=== PATIENT | female | born 1970 | race Caucasian/White ===

== ENCOUNTER → 2018-10-10 | Outpatient (REF) | payer OTHER ==
[~2018-10-10] MED LIST: CRESTOR5 MG PO; FLONASE NASAL50 MCG; LISINOPRIL10 MG PO; LISINOPRIL5 MG PO; MECLIZINE12.5 M1 PO; PRAVASTATIN10 MG PO; ZOFRAN4 MG/TAB PO
[2018-10-10 09:26] LABS: HEMATOCRIT 43.9 % (37.0-47.0); IMMATURE GRANULOCYTES 0.1 % (0.0-5.0); MEAN CELL VOLUME 88.3 fL CALC (80.0-100.0); MEAN CORPUSCULAR HGB 28.2 pG CALC (26.0-32.0); MEAN CORPUSCULAR HGB CONC 31.9 g/L CALC (32.0-36.0); NEUT# 4.59 thou/uL (2.00-7.15); RED BLOOD COUNT 4.97 mill/uL (4.20-5.60); RED CELL DISTRI WIDTH 14.4 % (11.5-15.5)
[2018-10-10 09:44] LABS: ALBUMIN 4.2 g/dL (3.2-5.0); ALKALINE PHOSPHATASE 101 u/l (38-126); ANION GAP 15 (6-22 (CALC)); BILIRUBIN, TOTAL 0.5 mg/dL (0.0-1.4); BUN 15 mg/dL (7-17); BUN/CREATININE RATIO 21 (12-20 (CALC)); CALCULATED LDLCHOLESTEROL 120 mg/dL (62-129 (CALC)); CARBON DIOXIDE 25 mmol/l (22-30); CHLORIDE 104 mmol/l (95-108); CHOLESTEROL HDL RATIO 3.4 (<4.4 (CALC)); CPK 57 u/l (30-165); CREATININE 0.7 mg/dL (0.5-1.0); GFR > 60 ML/MIN (>=60 (CALC)); GFR FOR AFR.AMER. > 60 ML/MIN (>=60 (CALC)); HDL CHOLESTEROL 59 mg/dL (>=40); POTASSIUM 4.4 mmol/l (3.5-5.1); SGOT/AST 26 u/l (14-36); SODIUM 139 mmol/l (137-146); TOTAL CHOLESTEROL 202 mg/dl (0-199); TOTAL PROTEIN 7.1 g/dL (6.3-8.2); TOTAL TRIGLYCERIDES 114 mg/dl (30-149); VLDL CHOLESTROL 23 mg/dl (1-41 (CALC))
[2018-10-10 09:45] LABS: URINE BILIRUBIN - DIPSTICK NEGATIVE (NEGATIVE); URINE BLOOD DIPSTICK NEGATIVE (NEGATIVE); URINE COLOR YELLOW; URINE GLUCOSE - DIPSTICK NEGATIVE (NEGATIVE); URINE KETONE NEGATIVE (NEGATIVE); URINE LEUK ESTERASE TRACE (NEGATIVE); URINE NITRITE - DIPSTICK NEGATIVE (Negative); URINE PROTEIN - DIPSTICK NEGATIVE (NEG-TRACE); URINE SPECIFIC GRAVITY 1.015; URINE UROBILINOGEN - DIPSTICK 0.2 E.U./dL (0.2)
[2018-10-10 10:03] LABS: TSH, 3RD GENERATION 2.54 uIU/mL (0.47 - 4.68)
== END | disposition home or self-care (01) | DRG 305 ==
LOC: LAB 07:31
DX: I10 Essential (primary) hypertension (principal); E78.2 Mixed hyperlipidemia; E55.9 Vitamin D deficiency, unspecified; Z83.3 Family history of diabetes mellitus